=== PATIENT | male | born 1930 | race Caucasian/White ===

== ENCOUNTER → 2016-04-23 | Outpatient (CLI) | payer MEDICARE, BC ==
[~2016-04-23] MED LIST: AMLODIPINE BESYL5 MG PO; Bactroban Oint22 GM; CIPROFLOXACIN250 MG PO; CLARITIN10 MG PO; DAYPRO600 M1 PO; LOSARTAN POTAS100 M1 PO; LOVASTATIN40 MG PO; MICRO-K10 MEQ PO; OMNICEF300 MG PO; PLAVIX75 MG PO; PROTONIX IV40 MG PO; XANAX XR1 MG PO; ZANTAC150 MG PO
--- NOTE | ~2016-04-23 | WRIGHTHP ---
[place], [place] PATIENT HISTORY AND PHYSICAL EXAM [facility] #: [id number] UNIT #: [id number] ROOM: DOCTOR: PARUL AmosJOCELYNN BIRTHDATE: [birth year] DOS: 04/23/2016 This is a wound care consultation. HISTORY OF PRESENT ILLNESS: Mr. Chamberlain was referred to us for possible pressure ulcer around his left ear. Apparently, he complained that he has had it for 2 weeks now an open area that is sore behind his ear that has created a wound. He thinks his hearing aid was rubbing against it. He had the hearing aid for approximately 15 years now without a problem before this. 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 He is very hard of hearing, which makes history obtaining a bit difficult. PAST MEDICAL HISTORY: Significant for the following: He has a history of hypertension, hyperlipidemia, depression, anxiety and skin cancer. He has a history of acid reflux. No diabetes. He has some chronic kidney disease stage III, history of insomnia. He is status post hernia repair and postauricular lesion removal in 2011. SOCIAL HISTORY: Smoking history. He has never smoked. He is a . FAMILY HISTORY: Noncontributory at this time. REVIEW OF SYSTEMS: Other than discomfort from the area behind the left ear. He offers no other specific complaints. No breathing complaints, fevers, chills, nausea, vomiting, diarrhea, chest pains. PHYSICAL EXAMINATION: VITAL SIGNS: Notes vitals are as follows: Blood pressure 130/84, pulse is 68, respirations 16, temperature is 98. GENERAL: This is an elderly male who is pleasant, cooperative, in no acute distress. LUNGS: Clear to auscultation anteriorly. CARDIOVASCULAR: S1, S2 regular rate and rhythm. ABDOMEN: Soft. EXTREMITIES: There is no edema. He has an open area behind the left ear that is fairly deep crater. It is measuring 1.2 x 0.9 x 0.3 in depth. There is really no purulence or active cellulitis that is apparent. There is really no visible necrotic tissue noted, but it is friable and has a very friable base. ALLERGIES: IODINE. CURRENT MEDICATIONS: As follows: Aspirin 81 daily, Xanax 0.25 at bedtime, Claritin 10 daily, lovastatin 40 daily, Cozaar 50 daily, losartan 100 daily, metoprolol 25 daily, Toprol-XL 25 daily, amlodipine 5 daily, Lasix 40 daily, Plavix 70 daily, Protonix 40 daily, Celexa 20 daily, doxycycline 100 p.o. b.i.d. ASSESSMENT AND PLAN: An ulcer of the posterior auricular area. This patient has a history of wearing hearing aids for 15 years. It is a bit unusual that after those so many years, it would cause a problem now. So, I am suspicious [place], [place] PATIENT HISTORY AND PHYSICAL EXAM NAME: BILL CHAMBERLAIN UNIT #: [id number] ROOM: DOCTOR: JOCELYNN TERAN M.D. BIRTHDATE: [birth year] with his history of skin cancer that this may be a skin cancer instead of just a pressure ulcer, so I would like the patient to be seen by Dermatology. I think that this is the way to go at this point. In the meantime, we continued Arglaes powder just for antimicrobial purposes and have him use a 4 x 4 or 2 x 2 prior folded up behind that area just to pad and protect it a bit. I do not think he is going to be able to have any tape or adhesives around the area as this will probably just likely cause more problems than benefit him. So, I would like the patient to be seen by dba manager at this time. JOCELYNN TERAN MD CM:HISPHYS:PATIENT HISTORY AND PHYSICAL EXAMINATION [id number] JOCELYNN TERAN M.D. 04/25/16 1536 interface
== END ==
LOC: WOUNDCARE 01:32
DX: T85.9XXD Unspecified complication of internal prosthetic device, implant and graft, subsequent encounter (principal); L98.491 Non-pressure chronic ulcer of skin of other sites limited to breakdown of skin; E78.5 Hyperlipidemia, unspecified; F32.9 Major depressive disorder, single episode, unspecified; F41.9 Anxiety disorder, unspecified; I12.9 Hypertensive chronic kidney disease with stage 1 through stage 4 chronic kidney disease, or unspecified chronic kidney disease; N18.3 Chronic kidney disease, stage 3 (moderate); Z85.828 Personal history of other malignant neoplasm of skin; Y84.8 Other medical procedures as the cause of abnormal reaction of the patient, or of later complication, without mention of misadventure at the time of the procedure; Y92.89 Other specified places as the place of occurrence of the external cause

== ENCOUNTER → 2016-09-11 | Outpatient (CLI) | payer MEDICARE, BC | END | disposition home or self-care (01) | LOC: RAD 12:09 | DX: I51.7 Cardiomegaly (principal); R60.0 Localized edema; I10 Essential (primary) hypertension; J90 Pleural effusion, not elsewhere classified; J84.10 Pulmonary fibrosis, unspecified; Z87.891 Personal history of nicotine dependence ==

== ENCOUNTER → 2016-09-18 | Outpatient (CLI) | payer MEDICARE, BC | END | disposition home or self-care (01) | LOC: US 01:56 | DX: R60.0 Localized edema (principal); I10 Essential (primary) hypertension ==

== ENCOUNTER → 2016-09-25 | Outpatient (CLI) | payer MEDICARE | END | disposition home or self-care (01) | LOC: CARD 02:24 | DX: I10 Essential (primary) hypertension (principal); R60.0 Localized edema ==

== ENCOUNTER 2016-11-21 15:00 | Emergency (ER) | payer MEDICARE ==
[~2016-11-21] VITALS: Ht 180.3 cm; Wt 77.1 kg
== END 2016-11-21 21:36 | disposition home or self-care (01) ==
LOC: ED 15:00
DX: S51.812A Laceration without foreign body of left forearm, initial encounter (principal); Z98.890 Other specified postprocedural states; Z79.899 Other long term (current) drug therapy; Z91.041 Radiographic dye allergy status; Z88.2 Allergy status to sulfonamides; W01.198A Fall on same level from slipping, tripping and stumbling with subsequent striking against other object, initial encounter; Y93.89 Activity, other specified; Y92.89 Other specified places as the place of occurrence of the external cause; Y99.9 Unspecified external cause status

== ENCOUNTER 2017-01-21 17:08 | Inpatient (IN) | payer MEDICARE, BC ==
[~2017-01-21] VITALS: Ht 177.8 cm; Wt 72.8 kg
[2017-01-21 17:08] VITALS: BP 185/83
--- NOTE | 2017-01-21 17:20 | NUR ---
THIS RN SPOKE WITH PT'S WILMER YOUNG AT [phone] FOR FURTHER INFORMATION ON PT. PER WILMER PT IS A DNRCC. DR BIANCHI NOTIFIED.
[2017-01-21 17:30] VITALS: BP 168/84
[2017-01-21 18:00] VITALS: BP 181/81
[2017-01-21 18:03] LABS: HEMATOCRIT 40.7 % (42.0-52.0); HEMOGLOBIN 13.6 g/dl (14.0-18.0); MEAN CELL VOLUME 92.3 fl (80.0-94.0); MEAN CORPUSCULAR HGB 30.8 pg (27.0-31.0); MEAN CORPUSCULAR HGB CONC 33.4 g/dl (33.0-37.0); MEAN PLATELET VOLUME 8.4 fl (9.6-12.3); PLATELET COUNT AUTOMATED 208 10*3/uL (130-400); RED BLOOD COUNT 4.41 10*6/uL (4.50-5.90); WHITE BLOOD COUNT 16.4 10*3/uL (4.8-10.8)
--- NOTE | 2017-01-21 18:05 | NUR ---
DR BIANCHI ALSO SPOKE WITH PT'S POA AND DUE TO CODE STATUS FAMILY DOES NOT WISH FOR PT TO BE TRANSFERED TO [facility].
[2017-01-21 18:20] LABS: ACT PARTIAL THROMBO TIME 21.2 SECONDS (20.8-31.5)
[2017-01-21 18:22] LABS: ALBUMIN 3.4 gm/dl (3.1-4.5); ALKALINE PHOSPHATASE 168 U/L (45-117); BUN 11 mg/dl (7-24); CHLORIDE 97 mmol/L (98-107); CREATININE 1.27 mg/dL (0.70-1.30); MAGNESIUM 1.8 mg/dL (1.5-2.1); POTASSIUM 4.1 mmol/L (3.5-5.1); SGOT/AST 36 IU/L (3-35); SGPT/ALT 29 U/L (12-78); SODIUM 131 mmol/L (136-145); TOTAL PROTEIN 8.4 gm/dL (6.4-8.2)
[2017-01-21 18:24] LABS: TROPONIN I < 0.015 ng/ml (<0.045)
[2017-01-21 18:26] LABS: TOTAL CELLS COUNTED 100 #CELLS; TOXIC GRANULATION SLIGHT
[2017-01-21 18:27] LABS: PLATELET SUFFICIENCY NORMAL (NORMAL)
[2017-01-21 18:30] VITALS: BP 176/77
--- NOTE | 2017-01-21 18:51 | NUR ---
CONSULT MADE TO [facility]. SPOKE WITH JASON, UPDATED ON PT STATUS. NUMBER FOR WILMER YOUNG [phone] GIVEN TO HOSPICE. ARRANGEMENTS TO BE MADE FOR HER TO MEET WITH HOSPICE BY JASON FROM [facility]. DR ARITA NOTIFIED OF ABOVE.
[2017-01-21 19:00] VITALS: BP 162/85
--- NOTE | 2017-01-21 19:00 | NUR ---
Time: 1899 A 86 year old MALE admitted to under services of SRAVANI ROJAS DO. Pt. arrived via ambulance from ER. Chief complaint: BRENT GROVES
[2017-01-21 19:30] VITALS: BP 160/80
--- NOTE | 2017-01-21 20:00 | NUR ---
SMALL ABRASION NOTED TO LFA. SKIN TEAR TO ANTERIOR RFA MEASURES 8X4 WITH MODERATE AMOUNT OF SEROUSANGINOUS DRAINAGE NOTED. WOUND BED RED IN COLOR. NO ODOR NOTED. PERIWOUND ECCHYMOTIC. SKIN TEAR TO POSTERIOR DISTAL RFA MEASURES 1.7X1.5. NO DRAINAGE/ODOR NOTED. WOUND BED RED IN COLOR WITH ECCHYMOTIC PERIWOUND. SKIN TEAR TO POSTERIOR PROXIMAL RFA MEASURES 1.2X2. NO DRAINAGE/ODOR NOTED. WOUND BED RED IN COLOR WITH ECCHYMOTIC PERIWOUND. ALL SKIN TEARS CLEANSED WITH NS, COVERED WITH TELFA, AND WRAPPED WITH KERLIX. NO FAMILY PRESENT TO SIGN PERMISSION FOR WOUND PICTURES AND PT IS UNRESPONSIVE AT THIS TIME. MULTIPLE ECCHYMOTIC AREAS NOTED.
--- NOTE | 2017-01-21 20:37 | NUR ---
SPOKE WITH DR. GONZALEZ RE LABS ORDERED. OK'D TO CANCEL LABS. ALSO NOTIFIED OF HOSPICE NOT BEING ABLE TO ADMIT PT UNTIL TOMMORROW. AWARE OF PT'S RAPIDLY DECLINING STATUS. PT TO BE KEPT COMFORTABLE.
--- NOTE | 2017-01-21 21:04 | NUR ---
PT MOANING/GASPING W/TACHYPNEIC BREATHING. MEDICATED WITH PRN MORPHINE IVP 2MG FOR COMFORT. MOUTH CARE GIVEN. WILL CONTINUE TO MONITOR.
[2017-01-21 22:32] LABS: BILIRUBIN NEGATIVE (NEGATIVE); BLOOD 1+ (NEGATIVE); CLARITY SL CLOUDY (CLEAR); COLOR YELLOW (YELLOW); GLUCOSE NEGATIVE (NEGATIVE); KETONE NEGATIVE (NEGATIVE); LEUKO ESTERASE NEGATIVE (NEGATIVE); NITRITE NEGATIVE (NEGATIVE)
[2017-01-21 22:46] LABS: BACTERIA 1+; EPITHELIAL CELLS 0-2; WBC 0-2 wbc/hpf (0-5)
--- NOTE | 2017-01-21 23:12 | NUR ---
PT MEDICATED WITH PRN ATIVAN 1MG IVP FOR LABORED RESPS. VISITORS AT BEDSIDED. WILL CONT. TO MONITOR.
[2017-01-22] VITALS: BP 94/54
--- NOTE | 2017-01-22 00:30 | NUR ---
PT'S DATA SERVICES DEVELOPER AND PASTORS AT BEDSIDE. FAMILY TO CALL [phone] IF THEY ARE NEEDED. PT RESTING QUIETLY IN BED AT THIS TIME.
--- NOTE | 2017-01-22 01:44 | NUR ---
PT RESTING COMFORTABLY IN BED. NEPHEW AT BEDSIDE. NO S/S OF DISTRESS NOTED.
--- NOTE | 2017-01-22 03:49 | NUR ---
PT RESPS 32 AND PT MOANING. PT MEDICATED WITH PRN MORPHINE 2MG IVP. NEPHEW REMAINS AT BEDSIDE. WILL CONT. TO MONITOR.
--- NOTE | 2017-01-22 04:30 | NUR ---
PT RESTING QUIETLY IN BED. NO FURTHER MOANING NOTED. RESPS EASIER IN MID 20'S. CONTINUE TO MONITOR.
[2017-01-22 05:45] VITALS: BP 104/52
--- NOTE | 2017-01-22 05:45 | NUR ---
PT MEDICATED WITH PRN MORPHINE 2MG IVP FOR S/S OF DISTRESS. NEPHEW AT BEDSIDE. REPOSITIONED FOR COMFORT.
[2017-01-22 08:00] VITALS: BP 97/48
--- NOTE | 2017-01-22 08:30 | NUR ---
COTTON BAG SEWER VS. PT ASLEEP. FAMILY MEMBER AT BEDSIDE AND SAID HOSPICE MEETING WITH FAMILY LATER TODAY.
--- NOTE | 2017-01-22 08:40 | NUR ---
BILL CHAMBERLAIN [id number] Please refer to the physician's history and physical for past medical history, comorbid conditions, and allergies. Diagnosis: ICH Luca Score: , WOUND DESCRIPTIONS: Location of the wound: right posterior arm Type of wound: skin tear Thickness: Partial Size: 8.0cm x 4.0cm x 0.1cm Tunneling: none Undermining: none Sinus Tract: none Presence of Exudate: Serosanguineous Amount: Light Color: Red Odor: None Periwound Skin Appearance: Normal Wound edges: approximated Pain (associated with wound): none at time of assessment How does patient state this happened? pt unable to answer how this area occured Location of the wound: right anterior arm Type of wound: skin tear Thickness: Partial Size: 3.0cm x 2.0cm x 0.1cm Tunneling: none Undermining: none Sinus Tract: none Presence of Exudate: Serosanguineous Amount: Light Color: Red Odor: None Periwound Skin Appearance: Normal Wound edges: approximated Pain (associated with wound): none at time of assessment How does patient state this happened? pt unable to state how this area occured Surface the patient is resting on: Isoflex SKIN PREVENTION RECOMMENDATION: 1. Pressure redistribution support surface as appropriate 2. Elevate heels 3. Remove boots/TEDS every shift and reapply 4. Head of bed 30 degrees as tolerated 5. Assess nutrition and hydration 6. Manage moisture 7. Avoid the use of containment devices while in bed 8. Use absorptive products on surfaces limit layers of linens on bed 9. Turn and reposition every 1-2 hours in bed and every 1 hour in chair as tolerated 10. Weight shifts every 15 minutes while up in chair 11. Offloading with pillows or device to keep heels elevated off bed 12. Monitor skin at least every shift 13. Inspect under medical devices twice a day WOUND TREATMENT RECOMMENDATIONS: Skin tear guideline right forearm posterior and anterior cleanse with nss, apply sureprep around wound cover wound hydrogel and versatel cover with rolled gauze.
--- NOTE | 2017-01-22 08:43 | NUR ---
Dr. Jorge aware of wound care recommendation and orders obtained.
--- NOTE | 2017-01-22 09:35 | NUR ---
PT GIVEN PRN MORPHINE AND ATIVAN. WILL CONINUE TO MONITOR.
--- NOTE | 2017-01-22 10:21 | NUR ---
Lauren from [facility] contacted me and stated she was able to contact the patients HPOA who is flying in from [place] and is meeting with family this afternoon at 2:30 pm. I faxed the hospice order and clinicals per her request.
[2017-01-22 12:00] VITALS: BP 98/44
[2017-01-22 16:00] VITALS: BP 106/44
--- NOTE | 2017-01-22 17:12 | NUR ---
PATIENT IS BEING DISCHARGED TO IN. HOSPICE CARE, UNDER [facility] AT THIS TIME.
== END 2017-01-22 17:12 | disposition hospice, home (50) | DRG 83 ==
LOC: ED 17:08 → EDHOLD 17:56 → 4E 17:56
PROVIDERS: Emergency Medicine; ADMIT Internal Medicine
DX: S06.369A Traumatic hemorrhage of cerebrum, unspecified, with loss of consciousness of unspecified duration, initial encounter (principal); E87.1 Hypo-osmolality and hyponatremia; R65.10 Systemic inflammatory response syndrome (SIRS) of non-infectious origin without acute organ dysfunction; E87.8 Other disorders of electrolyte and fluid balance, not elsewhere classified; F07.81 Postconcussional syndrome; R74.8 Abnormal levels of other serum enzymes; R73.9 Hyperglycemia, unspecified; D64.9 Anemia, unspecified; F41.9 Anxiety disorder, unspecified; K21.9 Gastro-esophageal reflux disease without esophagitis; E78.5 Hyperlipidemia, unspecified; I10 Essential (primary) hypertension; S41.112A Laceration without foreign body of left upper arm, initial encounter; Z66 Do not resuscitate; W18.39XA Other fall on same level, initial encounter; Z51.5 Encounter for palliative care; Z88.2 Allergy status to sulfonamides; Z91.041 Radiographic dye allergy status; Z82.49 Family history of ischemic heart disease and other diseases of the circulatory system; Z82.3 Family history of stroke; Z79.899 Other long term (current) drug therapy; Y93.89 Activity, other specified; Y92.090 Kitchen in other non-institutional residence as the place of occurrence of the external cause; Y99.8 Other external cause status

== ENCOUNTER 2017-01-22 17:30 | Inpatient (IN) | payer OTHER, MEDICARE, BC ==
[~2017-01-22] VITALS: Ht 177.8 cm; Wt 63.5 kg
[2017-01-22 17:50] VITALS: BP 124/76
--- NOTE | 2017-01-22 18:26 | NUR ---
A 86, admitted to , under the services of SRAVANI Barba DO with a diagnosis of ICH. Chief complaint is [facility]. [place] Monitor applied. Initial assessment completed. Vital signs taken and recorded. SRAVANI BARBA DO notified of admission to the unit. Orders received. See assessment for past medical history, medications and allergies. Patient and/or family oriented to unit. [facility] visitation policy reviewed. Clothing/patient valuable form completed. CHRISTIANO GALE
--- NOTE | 2017-01-22 19:20 | NUR ---
UPON ASSESSMENT OF THIS PT. A NEW SKIN TEAR TO POSTERIOR LFA FOUND MEASUREING 6X3 WITH RED/YELLOW WOUND BED. MODERATE OF AMONT OF SS DRAINAGE NOTED. PERIWOUND ECCHYMOTIC. AREA CLEANSED WITH NS, HYDROGEL APPLIED, COVERED WITH TELFA, AND WRAPPED WITH GAUZE. FAMILY AT BEDSIDE. PT REPOSITIONED FOR COMFORT. NO S/S OF DISTRESS NOTED AT THIS TIME.
[2017-01-22 20:00] VITALS: BP 144/55
--- NOTE | 2017-01-22 22:49 | NUR ---
PT RESTING QUIETLY IN BED WITH FAMILY AT BEDSIDE. MOUTH CARE GIVEN AND PT REPOSITIONED.
[2017-01-23] VITALS: BP 129/62
--- NOTE | 2017-01-23 04:40 | NUR ---
PT MEDICATED WITH PRN ATROPINE GTTS FOR WET SECRETIONS. FAMILY REMAINS AT BEDSIDE. PT REPOSITIONED FOR COMFORT. MOUTH CARE GIVEN.
[2017-01-23 08:00] VITALS: BP 148/70
--- NOTE | 2017-01-23 08:00 | NUR ---
PT MEDICATED WITH ATIVAN AND MORPHINE. RESPERATIONS ARE WEAK, AND LABORED. MEDICATED FOR COMFORT. WILL CONINUE TO MONITOR AND HELP THE FAMILY.
--- NOTE | 2017-01-23 09:35 | NUR ---
HOSPICE LI CAME TO DESK STATING MR CHAMBERLAIN HAD . PT FOUND WITH PULSE OR RESPIRATION. FAMILY AT BED SIDE.
--- NOTE | 2017-01-23 09:35 | NUR ---
PT HAS AT 0935. FAMILY NOTIFIED, ONE CALL NOTIFIED. WILL CONINUE TO AID FOR THE FAMILY.
--- NOTE | 2017-01-23 09:41 | NUR ---
SPOKE TO DR. ARITA ON PHONE TO BE MADE [facility] PT PASSING. SHE WAS MADE AWARE THAT A REQUEST FOR DR. DONIS TO SIGN THE CERTIFICATE.
--- NOTE | 2017-01-23 11:59 | NUR ---
PATIENT TRANSPORTED OFF FLOOR WITH [facility] STAFF.
== END 2017-01-23 09:35 | disposition expired | DRG 65 ==
LOC: 4E 17:30
PROVIDERS: ADMIT Internal Medicine
DX: I61.9 Nontraumatic intracerebral hemorrhage, unspecified (principal); E87.1 Hypo-osmolality and hyponatremia; R65.10 Systemic inflammatory response syndrome (SIRS) of non-infectious origin without acute organ dysfunction; E87.8 Other disorders of electrolyte and fluid balance, not elsewhere classified; F07.81 Postconcussional syndrome; D64.9 Anemia, unspecified; I10 Essential (primary) hypertension; Z51.5 Encounter for palliative care; E78.5 Hyperlipidemia, unspecified; K21.9 Gastro-esophageal reflux disease without esophagitis; Z88.2 Allergy status to sulfonamides; Z91.041 Radiographic dye allergy status; R73.9 Hyperglycemia, unspecified; F41.9 Anxiety disorder, unspecified; W18.30XA Fall on same level, unspecified, initial encounter; Y93.89 Activity, other specified; Y92.89 Other specified places as the place of occurrence of the external cause; Y99.8 Other external cause status